=== PATIENT | female | born 1985 | race Caucasian/White ===

== ENCOUNTER 2019-08-08 05:20 | Emergency (ER) | payer MEDICAID ==
[~2019-08-08] VITALS: Ht 162.6 cm; Wt 107.7 kg
[2019-08-08 05:21] VITALS: BP 135/81
[2019-08-08] MEDS ORDERED: HYDROcodone/acetaminophen 5mg/325mg tablet PO ONE (05:40)
[2019-08-08] MEDS ORDERED: AMOX-422 PO (05:58)
[2019-08-08] MEDS ORDERED: HYDR-3965 PO (05:58)
--- NOTE | 2019-08-08 05:59 | NUR ---
PT GIVEN SCRUB SPONGE AND SHE IS ABLE TO IRRIGATE HER WOUND IN THE SINK. THERE WAS A QUESTIONABLE FOREIGN BODY ON THE XRAY SO THE AREA WILL BE NUMBED AND EXPLORED BY .
[2019-08-08] MEDS ORDERED: TETanus/Pertussis (Acell)/Diphther VAC/PF (Tdap-Adult) 0.5ml syringe IM ONE (06:05)
== END 2019-08-08 06:44 | disposition home or self-care (01) ==
LOC: ER 05:20
DX: S61.432A Puncture wound without foreign body of left hand, initial encounter (principal); J45.909 Unspecified asthma, uncomplicated; Z56.0 Unemployment, unspecified; Z79.2 Long term (current) use of antibiotics; Z79.899 Other long term (current) drug therapy; W54.0XXA Bitten by dog, initial encounter; Y93.89 Activity, other specified; Y92.89 Other specified places as the place of occurrence of the external cause; Y99.8 Other external cause status
CPT/HCPCS: 29125; 73130; 90471; 99283